=== PATIENT | male | born 1960 | race Caucasian/White ===

== ENCOUNTER 2021-02-22 09:15 | Emergency (ER) | payer SELFPAY ==
[~2021-02-22] VITALS: Ht 190.5 cm; Wt 127.0 kg
[2021-02-22] MEDS ORDERED: HYDROCODON-ACE1 EA10 PO (10:35)
[2021-02-22] MEDS ORDERED: NAPROSYN500 MG PO (10:35)
== END 2021-02-22 11:24 | disposition home or self-care (01) ==
LOC: ED 09:15
DX: S73.102A Unspecified sprain of left hip, initial encounter (principal); F17.200 Nicotine dependence, unspecified, uncomplicated; X50.1XXA Overexertion from prolonged static or awkward postures, initial encounter
CPT/HCPCS: 73502; 99283-25